=== PATIENT | male | born 1950 | race African-American/Black ===

== ENCOUNTER → 2017-05-21 | Outpatient (CLI) | payer OTHER ==
[~2017-05-21] MED LIST: IOPAMIDOL 370 MG/ML 200 ML INFUS..BTL INJ ONE; SODIUM CHLORIDE 0.9% 50ML 50 ML ONE
[2017-05-21 13:16] LABS: BLOOD UREA NITROGEN 23 mg/dL (8-26); BUN/CREATININE RATIO 16 (6-25); CREATININE, SERUM 1.4 mg/dL (0.9-1.3); EST GLOMERULAR FILTRATION RATE > 60 ML/MIN (60-)
--- NOTE | 2017-05-21 14:16 | Diagnostic Imaging Report ---
PROCEDURE: Frontal and lateral views of the chest. COMPARISON: None. INDICATIONS: MALIGNANT NEOPLASM OF PROSTATE FINDINGS: Lines/tubes: None. Lungs: The lungs are well inflated and clear. There is no evidence of pneumonia or pulmonary edema. Pleura: There is no pleural effusion or pneumothorax. Heart and mediastinum: The heart and the mediastinum are normal. Bones: No acute bony abnormality. IMPRESSION: 1. No acute cardiopulmonary disease. Dictated by: Aldo Vo M.D. on 05/21/2017 at 14:15 Electronically approved by: Aldo Vo M.D. on 05/21/2017 at 14:15
--- NOTE | 2017-05-21 15:14 | Diagnostic Imaging Report ---
EXAM: CT Abdomen and Pelvis WITH contrast INDICATION: Elevated PSA. \[id number] \S\[id number] \S\MALIGNANT NEOPLASM OF PROSTATE COMPARISON: None. TECHNIQUE: Abdomen and pelvis were scanned utilizing a multidetector helical scanner from the lung base to the pubic symphysis after administration of IV contrast. Coronal and sagittal reformations were obtained. Routine protocol was performed. Scan was performed when during portal venous phase. IV CONTRAST: 100 mL of Isovue-300 ORAL CONTRAST: Water COMPLICATIONS: None RADIATION DOSE: Total DLP: 309.84 mGy*cm Estimated effective dose: (DLP x 0.015 x size factor) mSv CTDIvol has been reviewed. It is below the limits set by the Radiation Protocol Committee (RPC). FINDINGS: LINES and TUBES: None. LOWER THORAX: Unremarkable HEPATOBILIARY: Few scattered hepatic hypodensities, the largest in left hepatic lobe measuring 0.8 cm, which are too small to characterize (series 2, images 13, 15, and 22). No hepatic mass. No biliary ductal dilation. GALLBLADDER: No radio-opaque stones or sludge. No wall thickening. SPLEEN: No splenomegaly. PANCREAS: No focal masses or ductal dilatation. ADRENALS: No adrenal nodules KIDNEYS/URETERS: Kidneys enhance symmetrically. No hydronephrosis. Left extrarenal pelvis. No renal mass. 2.4 cm left and 1.8 cm right superior pole cysts. No stones. GI TRACT: No abnormal distention, wall thickening, or evidence of bowel obstruction. Stool throughout the colon may represent constipation. Appendix is normal. PELVIC ORGANS/BLADDER: Prostatectomy. Bladder is unremarkable. LYMPH NODES: No lymphadenopathy. VESSELS: Unremarkable. PERITONEUM / RETROPERITONEUM: No free air or fluid. BONES: Mottled appearance of iliac bones. No sclerotic lesion visualized. SOFT TISSUES: Unremarkable. IMPRESSION: 1. No evidence of metastatic disease in the abdomen/pelvis. 2. Nonspecific subcentimeter hepatic hypodensities, probably small cysts, which can be confirmed with nonurgent abdominal MRI with and without contrast. 3. Postsurgical changes of prostatectomy. Signed by: Dr. Aldo Vo MD on 05/21/2017 3:11 PM
--- NOTE | 2017-05-24 11:29 | Diagnostic Imaging Report ---
Bone Scan, delayed phase INDICATION: Prostate cancer with rising PSA COMPARISON: No prior bone scan; CT abdomen and pelvis 05/21/2017; chest radiograph 05/21/2017 REPORT: Approximately 3 hours following intravenous administration of 27 mCi of Tc-99m MDP, delayed total body images in the anterior and posterior projections and selected spot images were obtained. Focal increased tracer is seen in the right heel. Otherwise, distribution of tracer activity is unremarkable throughout the skeletal system. No abnormal accumulation of tracer is seen in the soft tissues or urinary tract. IMPRESSION: 1. No scan evidence of metastatic bone disease. 2. Acute osteoblastic process in the right heel consistent with post-traumatic change, less likely degenerative process. Signed by: Dr. Eda Ferraro M.D. on 05/24/2017 11:26 AM
== END ==
LOC: NM 10:29
PROVIDERS: ATTEND Urology
DX: C61 Malignant neoplasm of prostate (principal)
CPT/HCPCS: 36415; 71046; 74177; 78306; 82565; 84520; A9503; Q9967

== ENCOUNTER → 2022-04-03 | Outpatient (CLI) | payer MEDICARE ==
[~2022-04-03] MED LIST changes: +IOPAMIDOL 370 MG/ML 100 ML INFUS..BTL INJ ONE; -IOPAMIDOL 370 MG/ML 200 ML INFUS..BTL INJ ONE; -SODIUM CHLORIDE 0.9% 50ML 50 ML ONE
[2022-04-03 10:35] LABS: CREATININE, SERUM 1.19 mg/dL (0.72-1.25)
== END ==
LOC: CT 09:46
PROVIDERS: ATTEND Family Medicine
DX: R06.02 Shortness of breath (principal)
CPT/HCPCS: 36415; 71260; 82565; 84520; Q9967

== ENCOUNTER → 2022-04-14 | Outpatient (CLI) | payer MEDICARE | LOC: CARD 09:54 | PROVIDERS: ATTEND Family Medicine | DX: R55 Syncope and collapse (principal); I99.8 Other disorder of circulatory system | CPT/HCPCS: 70551; 93880 ==

== ENCOUNTER → 2024-08-09 | Day surgery (SDC) | payer MEDICARE ==
[~2024-08-09] MED LIST changes: +ACETAMINOPHEN 1000 MG/100 ML 100 ML IV ONE; +AMLODIPINE BESYL5 MG PO; +DEXAMETHASONE SOD PHOS INJ 4 MG/ML SDV ONE; +FENTANYL CITRATE/PF 100MCG/2 ML INJ ONE; -IOPAMIDOL 370 MG/ML 100 ML INFUS..BTL INJ ONE; +LIDOCAINE HCL 2% LOCAL INJ 5 ML SDV VIAL INJ ONE; +METFORMIN HCL500 MG PO; +PROPOFOL IV EMULSION 10 MG/ML 20 ML VIAL ONE; +ROSUVASTATIN CA10 MG
[2024-08-09 06:53] LABS: BASOPHILS % 0.4 % (0.0-1.0); EOSINOPHILS # (AUTO) 0.1 (0.0-0.4); EOSINOPHILS % 0.8 % (0.0-6.0); HEMATOCRIT 40.3 % (38.2-49.6); HEMOGLOBIN 13.1 g/dL (14.0-18.0); LYMPHOCYTES # (AUTO) 2.6 (1.0-3.2); MEAN CORPUSCULAR HEMOGLOBIN 28.5 pg (28-32); MEAN CORPUSCULAR HGB CONC 32.5 g/dL (31-35); MEAN CORPUSCULAR VOLUME 87.6 fL (81-99); MONOCYTES # (AUTO) 0.7 (0.2-0.8); MONOCYTES % 9.4 % (4.4-11.3); NEUTROPHILS # (AUTO) 3.8 (2.1-6.9); NEUTROPHILS % 53.1 % (38.7-80.0); PLATELET COUNT 216 x10e3/uL (140-360); RED CELL DISTRIBUTION WIDTH 13.5 % (11.7-14.4); WHITE BLOOD COUNT 7.11 x10e3/uL (4.8-10.8)
[2024-08-09 07:07] LABS: ANION GAP 13.6 mmol/L (8-16); CALCIUM 9.9 mg/dL (8.4-10.2); CREATININE, SERUM 1.31 mg/dL (0.72-1.25); POTASSIUM 3.6 mmol/L (3.5-5.1)
[2024-08-09] MEDS: SODIUM CHLORIDE 0.9% 1000ML 1,000 ML ONE (07:13)
[2024-08-09 11:30] VITALS: BP 135/65; PULSE 79; RESP 18; O2SAT 97
== END | disposition home or self-care (01) ==
LOC: OR 06:01
PROVIDERS: ATTEND Urology
DX: N47.1 Phimosis (principal); N47.5 Adhesions of prepuce and glans penis; N35.812 Other bulbous urethral stricture, male; N32.89 Other specified disorders of bladder; N48.0 Leukoplakia of penis; E11.9 Type 2 diabetes mellitus without complications; I10 Essential (primary) hypertension; E78.5 Hyperlipidemia, unspecified; E66.01 Morbid (severe) obesity due to excess calories; Z79.84 Long term (current) use of oral hypoglycemic drugs; Z79.899 Other long term (current) drug therapy; Z68.27 Body mass index [BMI] 27.0-27.9, adult
CPT/HCPCS: 36415; 52281; 54163; 71046; 80048; 82948; 85025; 88304; 88342; 93005; J0131; J0690; J1100; J2003; J2704; J3010; J7030